=== PATIENT | female | born 1990 | race Caucasian/White ===

== ENCOUNTER 2017-08-18 17:29 | Emergency (ER) | payer MEDICAID ==
[~2017-08-18] VITALS: Ht 165.1 cm; Wt 108.4 kg
[2017-08-18 17:44] VITALS: Ht 165.1 cm; Wt 108.4 kg
[2017-08-18 18:45] LABS: BASOPHIL % 0.4 % (0-2); PLATELET COUNT 358 x10^3mcL (130-400); RED CELL DISTRIBUTION WIDTH 13.4 % (11.5-14.5)
[2017-08-18 18:49] LABS: microscopic required? YES; urine erythrocyte TRACE (NEGATIVE)
[2017-08-18 18:56] LABS: CALCIUM 8.9 mg/dL (8.5-10.1); CARBON DIOXIDE 24.7 mmol/L (21-32); CHLORIDE SERUM 99 mmol/L (98-107); CREATININE SERUM 0.7 mg/dL (0.6-1.0); GFR1 > 60 mL/min; GLUCOSE SERUM 394 mg/dL (74-106); POTASSIUM SERUM 3.7 mmol/L (3.5-5.1); SODIUM SERUM 137 mmol/L (136-145)
[2017-08-18 19:40] LABS: ALBUMIN 3.3 g/dL (3.4-5.0); ALKALINE PHOSPHATASE 86 U/L (46-116); ALT/SGPT 32 U/L (14-59); AMYLASE 29 U/L (25-115); AST/SGOT 23 U/L (15-37); BILIRUBIN TOTAL 0.1 mg/dL (0.20-1.00); LIPASE 133 IU/L (73-393); TOTAL PROTEIN, SERUM 7.2 g/dL (6.4-8.2)
[2017-08-18 20:22] VITALS: BP 130/78
== END 2017-08-18 20:22 | disposition home or self-care (01) ==
LOC: ED 17:29
PROVIDERS: Emergency Medicine
DX: N39.0 Urinary tract infection, site not specified (principal); R11.2 Nausea with vomiting, unspecified; Z88.6 Allergy status to analgesic agent
CPT/HCPCS: J2405; J3010; J3490; J7030; Q0092

== ENCOUNTER 2017-10-28 21:02 | Emergency (ER) | payer SELFPAY ==
[~2017-10-28] VITALS: Ht 165.1 cm; Wt 107.0 kg
[2017-10-28 21:14] VITALS: Ht 165.1 cm; Wt 107.0 kg
[2017-10-28 22:48] LABS: BASOPHIL % 0.4 % (0-2); PLATELET COUNT 341 x10^3mcL (130-400); RED CELL DISTRIBUTION WIDTH 13.6 % (11.5-14.5)
[2017-10-28 22:56] VITALS: BP 126/83
[2017-10-28 22:56] LABS: CALCIUM 9.2 mg/dL (8.5-10.1); CARBON DIOXIDE 23.3 mmol/L (21-32); CHLORIDE SERUM 98 mmol/L (98-107); CREATININE SERUM 0.7 mg/dL (0.6-1.0); GFR1 > 60 mL/min; GLUCOSE SERUM 292 mg/dL (74-106); POTASSIUM SERUM 4.2 mmol/L (3.5-5.1); SODIUM SERUM 135 mmol/L (136-145)
== END 2017-10-28 23:43 | disposition home or self-care (01) ==
LOC: ED 21:02
PROVIDERS: Emergency Medicine
DX: R21 Rash and other nonspecific skin eruption (principal); E11.9 Type 2 diabetes mellitus without complications; Z88.6 Allergy status to analgesic agent; Z88.8 Allergy status to other drugs, medicaments and biological substances
CPT/HCPCS: J1200

== ENCOUNTER 2017-11-20 20:45 | Emergency (ER) | payer SELFPAY ==
[~2017-11-20] VITALS: Ht 165.1 cm; Wt 107.0 kg
[2017-11-20 21:06] VITALS: Ht 165.1 cm; Wt 107.0 kg
[2017-11-21 00:38] VITALS: BP 127/72
[2017-11-21 00:41] LABS: microscopic required? YES; urine erythrocyte 3+ (NEGATIVE)
== END 2017-11-21 00:38 | disposition home or self-care (01) ==
LOC: ED 20:45
PROVIDERS: Emergency Medicine Emergency Medical Services
DX: N92.6 Irregular menstruation, unspecified (principal); E11.9 Type 2 diabetes mellitus without complications; Z88.6 Allergy status to analgesic agent

== ENCOUNTER 2018-05-28 07:14 | Emergency (ER) | payer MEDICAID ==
[~2018-05-28] VITALS: Ht 165.1 cm; Wt 106.6 kg
[2018-05-28 07:18] VITALS: Ht 165.1 cm; Wt 106.6 kg
[2018-05-28 08:44] VITALS: BP 108/67
== END 2018-05-28 08:44 | disposition home or self-care (01) ==
LOC: ED 07:14
DX: M94.0 Chondrocostal junction syndrome [Tietze] (principal); E11.9 Type 2 diabetes mellitus without complications; Z88.6 Allergy status to analgesic agent
CPT/HCPCS: J3010; Q0092; Q0162

== ENCOUNTER 2018-07-27 07:36 | Inpatient (IN) | payer MEDICAID ==
[~2018-07-27] VITALS: Ht 162.6 cm; Wt 106.1 kg
[2018-07-27 07:37] VITALS: Ht 162.6 cm; Wt 106.1 kg
[2018-07-27 09:58] LABS: BASOPHIL % 0.5 % (0-2); PLATELET COUNT 339 x10^3mcL (130-400); RED CELL DISTRIBUTION WIDTH 13.5 % (11.5-14.5)
[2018-07-27 10:06] LABS: CALCIUM 8.9 mg/dL (8.5-10.1); CARBON DIOXIDE 25.2 mmol/L (21-32); CHLORIDE SERUM 99 mmol/L (98-107); CREATININE SERUM 0.5 mg/dL (0.6-1.0); GFR1 > 60 mL/min; GLUCOSE SERUM 220 mg/dL (74-106); POTASSIUM SERUM 3.9 mmol/L (3.5-5.1); SODIUM SERUM 134 mmol/L (136-145)
[2018-07-27 10:11] LABS: ALBUMIN 3.4 g/dL (3.4-5.0); ALKALINE PHOSPHATASE 68 U/L (46-116); ALT/SGPT 23 U/L (14-59); AMYLASE 26 U/L (25-115); AST/SGOT 9 U/L (15-37); BILIRUBIN TOTAL 0.3 mg/dL (0.20-1.00); LIPASE 90 IU/L (73-393); TOTAL PROTEIN, SERUM 7.6 g/dL (6.4-8.2)
[2018-07-27] MEDS ORDERED: GLIPIZIDE (16:20)
[2018-07-27] MEDS ORDERED: METFORMIN HCL1000 MG PO (16:21)
[2018-07-27 19:02] VITALS: BP 113/49
[2018-07-27 21:39] VITALS: BP 101/56
[2018-07-28 05:31] VITALS: BP 109/60
[2018-07-28 07:07] LABS: BASOPHIL % 0.4 % (0-2); PLATELET COUNT 308 x10^3mcL (130-400); RED CELL DISTRIBUTION WIDTH 13.6 % (11.5-14.5)
[2018-07-28 07:10] LABS: CALCIUM 8.4 mg/dL (8.5-10.1); CARBON DIOXIDE 28.3 mmol/L (21-32); CHLORIDE SERUM 102 mmol/L (98-107); CREATININE SERUM 0.6 mg/dL (0.6-1.0); GFR1 > 60 mL/min; GLUCOSE SERUM 244 mg/dL (74-106); POTASSIUM SERUM 4.3 mmol/L (3.5-5.1); SODIUM SERUM 136 mmol/L (136-145)
[2018-07-28 09:40] VITALS: BP 108/58
[2018-07-28 14:26] LABS: UA SPECIFIC GRAVITY 1.015 (1.005-1.035); microscopic required? YES; urine erythrocyte NEGATIVE (NEGATIVE)
[2018-07-28 17:27] VITALS: BP 113/73
[2018-07-28 21:24] VITALS: BP 107/50
[2018-07-29 05:34] VITALS: BP 109/64
[2018-07-29 06:24] LABS: BASOPHIL % 0.3 % (0-2); PLATELET COUNT 321 x10^3mcL (130-400); RED CELL DISTRIBUTION WIDTH 13.3 % (11.5-14.5)
[2018-07-29 06:55] LABS: CALCIUM 8.6 mg/dL (8.5-10.1); CARBON DIOXIDE 25.7 mmol/L (21-32); CHLORIDE SERUM 100 mmol/L (98-107); CREATININE SERUM 0.6 mg/dL (0.6-1.0); GFR1 > 60 mL/min; GLUCOSE SERUM 247 mg/dL (74-106); POTASSIUM SERUM 4.4 mmol/L (3.5-5.1); SODIUM SERUM 134 mmol/L (136-145)
[2018-07-29 09:12] VITALS: BP 124/66
[2018-07-29] MEDS ORDERED: GYNAZOLE VG (13:35)
[2018-07-29] MEDS ORDERED: METAMUCIL FIBE3.4 GM PO (15:07)
[2018-07-29 15:10] VITALS: BP 124/66
== END 2018-07-29 16:58 | disposition home or self-care (01) | DRG 531 ==
LOC: ED 07:36 → MU 16:01
PROVIDERS: Internal Medicine; Specialist; ADMIT Internal Medicine
DX: N76.0 Acute vaginitis (principal); E11.9 Type 2 diabetes mellitus without complications; K59.00 Constipation, unspecified; Z79.84 Long term (current) use of oral hypoglycemic drugs
CPT/HCPCS: 82962; 87491; 87591; J0696; J2270; J2405; J3010; J3490; J7030; Q0092

== ENCOUNTER 2018-08-10 19:55 | Emergency (ER) | payer MEDICAID ==
[~2018-08-10] VITALS: Ht 162.6 cm; Wt 108.4 kg
[~2018-08-10 19:55] MED LIST: GLIPIZIDE; GYNAZOLE VG; METAMUCIL FIBE3.4 GM PO; METFORMIN HCL1000 MG PO
[2018-08-10 20:31] VITALS: Ht 162.6 cm; Wt 108.4 kg
[2018-08-10 21:19] LABS: BASOPHIL % 0.4 % (0-2); PLATELET COUNT 344 x10^3mcL (130-400); RED CELL DISTRIBUTION WIDTH 13.3 % (11.5-14.5)
[2018-08-10 21:38] LABS: CHLORIDE SERUM 100 mmol/L (98-107); CREATININE SERUM 0.7 mg/dL (0.6-1.0); GFR1 > 60 mL/min; GLUCOSE SERUM 246 mg/dL (74-106); POTASSIUM SERUM 4.1 mmol/L (3.5-5.1); SODIUM SERUM 135 mmol/L (136-145)
[2018-08-10 21:43] LABS: ALBUMIN 3.7 g/dL (3.4-5.0); ALKALINE PHOSPHATASE 72 U/L (46-116); ALT/SGPT 24 U/L (14-59); AST/SGOT 11 U/L (15-37); BILIRUBIN TOTAL 0.2 mg/dL (0.20-1.00); TOTAL PROTEIN, SERUM 8.1 g/dL (6.4-8.2)
[2018-08-10 23:13] LABS: UA SPECIFIC GRAVITY >=1.030 (1.005-1.035); microscopic required? YES; urine erythrocyte TRACE (NEGATIVE)
[2018-08-11 01:30] VITALS: BP 134/69
== END 2018-08-11 01:30 | disposition home or self-care (01) ==
LOC: ED 19:55
PROVIDERS: Emergency Medicine
DX: N76.0 Acute vaginitis (principal); B96.89 Other specified bacterial agents as the cause of diseases classified elsewhere; E11.9 Type 2 diabetes mellitus without complications; Z88.6 Allergy status to analgesic agent
CPT/HCPCS: 36415

== ENCOUNTER 2018-08-14 13:32 | Emergency (ER) | payer MEDICAID ==
[~2018-08-14] VITALS: Ht 162.6 cm; Wt 107.5 kg
[2018-08-14 13:37] VITALS: Ht 162.6 cm; Wt 107.5 kg
[2018-08-14 14:41] VITALS: BP 143/71
== END 2018-08-14 14:41 | disposition home or self-care (01) ==
LOC: ED 13:32
DX: N76.0 Acute vaginitis (principal); L29.9 Pruritus, unspecified; E11.9 Type 2 diabetes mellitus without complications; Z88.6 Allergy status to analgesic agent

== ENCOUNTER 2018-11-13 06:02 | Emergency (ER) | payer MEDICAID ==
[~2018-11-13] VITALS: Ht 162.6 cm; Wt 108.1 kg
[2018-11-13 06:07] VITALS: Ht 162.6 cm; Wt 108.1 kg
[2018-11-13 08:00] LABS: BASOPHIL % 0.2 % (0-2); PLATELET COUNT 323 x10^3mcL (130-400); RED CELL DISTRIBUTION WIDTH 13.6 % (11.5-14.5)
[2018-11-13 08:16] LABS: CALCIUM 8.2 mg/dL (8.5-10.1); CARBON DIOXIDE 24.3 mmol/L (21-32); CHLORIDE SERUM 105 mmol/L (98-107); CREATININE SERUM 0.5 mg/dL (0.6-1.0); GFR1 > 60 mL/min; GLUCOSE SERUM 217 mg/dL (74-106); SODIUM SERUM 139 mmol/L (136-145)
[2018-11-13 08:20] LABS: ALKALINE PHOSPHATASE 59 U/L (46-116); ALT/SGPT 24 U/L (14-59); AST/SGOT 12 U/L (15-37); BILIRUBIN TOTAL 0.2 mg/dL (0.20-1.00); TOTAL PROTEIN, SERUM 6.5 g/dL (6.4-8.2)
[2018-11-13 08:21] LABS: ALBUMIN 2.9 g/dL (3.4-5.0)
[2018-11-13 08:29] LABS: AMPHETAMINE QUAL UR NONE DETECTED (See below)
[2018-11-13 08:31] LABS: FREE THYROXINE INDEX 2.4 ug/dL (1.4-4.5); T4(THYROXINE) 6.9 ug/dL (4.7-13.3)
[2018-11-13 08:36] LABS: T3 TOTAL 1.21 ng/mL
[2018-11-13 11:26] VITALS: BP 119/75
== END 2018-11-13 11:26 | disposition home or self-care (01) ==
LOC: ED 06:02
PROVIDERS: Emergency Medicine
DX: R07.89 Other chest pain (principal); R10.13 Epigastric pain; R10.12 Left upper quadrant pain; R10.30 Lower abdominal pain, unspecified; E11.9 Type 2 diabetes mellitus without complications; Z88.6 Allergy status to analgesic agent; H57.89 Other specified disorders of eye and adnexa
CPT/HCPCS: 84439; 85378; J2405; J3490; J7030; Q0092

== ENCOUNTER 2019-01-11 12:31 | Emergency (ER) | payer MEDICAID ==
[~2019-01-11] VITALS: Ht 167.6 cm; Wt 108.4 kg
[2019-01-11 12:56] VITALS: Ht 167.6 cm; Wt 108.4 kg
[2019-01-11 13:30] LABS: BASOPHIL % 0.4 % (0-2); PLATELET COUNT 331 x10^3mcL (130-400)
[2019-01-11 13:38] LABS: CALCIUM 8.9 mg/dL (8.5-10.1); CARBON DIOXIDE 26.6 mmol/L (21-32); CHLORIDE SERUM 100 mmol/L (98-107); CREATININE SERUM 0.7 mg/dL (0.6-1.0); GFR1 > 60 mL/min; GLUCOSE SERUM 377 mg/dL (74-106); SODIUM SERUM 136 mmol/L (136-145)
[2019-01-11 13:43] LABS: ALBUMIN 3.4 g/dL (3.4-5.0); ALKALINE PHOSPHATASE 85 U/L (46-116); ALT/SGPT 30 U/L (14-59); AST/SGOT 13 U/L (15-37); BILIRUBIN TOTAL 0.1 mg/dL (0.20-1.00); LIPASE 127 IU/L (73-393); TOTAL PROTEIN, SERUM 7.6 g/dL (6.4-8.2)
[2019-01-11 13:55] LABS: UA SPECIFIC GRAVITY <=1.005 (1.005-1.035); microscopic required? YES; urine erythrocyte 3+ (NEGATIVE)
[2019-01-11 16:25] VITALS: BP 119/71
== END 2019-01-11 16:25 | disposition home or self-care (01) ==
LOC: ED 12:31
PROVIDERS: Emergency Medicine
DX: N39.0 Urinary tract infection, site not specified (principal); R11.12 Projectile vomiting; R19.7 Diarrhea, unspecified; E11.65 Type 2 diabetes mellitus with hyperglycemia; Z88.6 Allergy status to analgesic agent
CPT/HCPCS: 82962; J0696; J1815; J2405; J3010; J7030; J7060; Q0092

== ENCOUNTER 2019-03-10 15:04 | Emergency (ER) | payer MEDICAID ==
[~2019-03-10] VITALS: Ht 165.1 cm; Wt 106.6 kg
[2019-03-10 15:17] VITALS: Ht 165.1 cm; Wt 106.6 kg
[2019-03-10 16:15] LABS: microscopic required? NO
[2019-03-10 16:21] LABS: urine erythrocyte NEGATIVE (NEGATIVE)
[2019-03-10 16:23] LABS: CALCIUM 8.7 mg/dL (8.5-10.1); CARBON DIOXIDE 22.8 mmol/L (21-32); CHLORIDE SERUM 96 mmol/L (98-107); CREATININE SERUM 0.5 mg/dL (0.6-1.0); GFR1 > 60 mL/min; GLUCOSE SERUM 322 mg/dL (74-106); POTASSIUM SERUM 3.8 mmol/L (3.5-5.1); SODIUM SERUM 132 mmol/L (136-145)
[2019-03-10 16:27] LABS: ALKALINE PHOSPHATASE 83 U/L (46-116); ALT/SGPT 29 U/L (14-59); AST/SGOT 7 U/L (15-37); BASOPHIL % 0.3 % (0-2); BILIRUBIN TOTAL 0.11 mg/dL (0.20-1.00); PLATELET COUNT 377 x10^3mcL (130-400); RED CELL DISTRIBUTION WIDTH 13.1 % (11.5-14.5); TOTAL PROTEIN, SERUM 7.7 g/dL (6.4-8.2)
[2019-03-10 16:29] LABS: ALBUMIN 3.2 g/dL (3.4-5.0)
[2019-03-10 18:50] VITALS: BP 104/55
== END 2019-03-10 18:50 | disposition home or self-care (01) ==
LOC: ED 15:04
PROVIDERS: Emergency Medicine
DX: R10.30 Lower abdominal pain, unspecified (principal); E11.9 Type 2 diabetes mellitus without complications; Z88.6 Allergy status to analgesic agent
CPT/HCPCS: 82962; J0696; J2405; J3010; J7030; J7060

== ENCOUNTER 2019-03-11 16:30 | Inpatient (IN) | payer MEDICAID ==
[~2019-03-11] VITALS: Ht 162.6 cm; Wt 109.0 kg
[2019-03-11 16:46] VITALS: Ht 162.6 cm; Wt 109.0 kg
--- NOTE | 2019-03-11 16:54 | NUR ---
PT PRESENTS TO THE ED TODAY WITH C/C OF ABD PAIN X3 DAYS. PT REPORTS PAIN IS IN BILATERAL LOWER QUADRANTS. PT WAS SEEN HERE YESTERDAY AND DIAGNOSED WITH AN "INFECTION" AND SENT HOME WITH ABX. PT REPORTS +NAUSEA, NO VOMITING. REPORTS PAIN WITH PALPATION TO BILATERAL LOWER QUADRANTS. PT REPORTS THAT WHEN SHE GOT HOME YESTERDAY SHE BEGAN HAVING FEVER AND CHILLS. PT IS AWAKE AND ALERT, RESP E/U, AWAITING MSE. PT AWARE OF NEED FOR URINE SAMPLE, REPORTS THAT SHE WILL PROVIDE WHEN SHE IS ABLE TO.
--- NOTE | 2019-03-11 17:10 | NUR ---
PT HAD TEMP OF 100.8 IN TRIAGE, PT REPORTS THAT SHE FEELS TOO NAUSEOUS TO TAKE TYLENOL AT THIS TIME.
--- NOTE | 2019-03-11 17:12 | NUR ---
DR BARRY MADE AWARE OF PT'S INCREASED TEMP SINCE TRIAGE AND INABILITY TO TAKE TYLENOL. AWAITING NEW ORDERS.
[2019-03-11 17:35] LABS: CALCIUM 8.6 mg/dL (8.5-10.1); CARBON DIOXIDE 21.3 mmol/L (21-32); CHLORIDE SERUM 98 mmol/L (98-107); CREATININE SERUM 0.7 mg/dL (0.6-1.0); GFR1 > 60 mL/min; GLUCOSE SERUM 232 mg/dL (74-106); POTASSIUM SERUM 3.8 mmol/L (3.5-5.1); SODIUM SERUM 133 mmol/L (136-145)
[2019-03-11 17:40] LABS: ALBUMIN 3.1 g/dL (3.4-5.0); ALKALINE PHOSPHATASE 75 U/L (46-116); ALT/SGPT 23 U/L (14-59); AST/SGOT 13 U/L (15-37); BILIRUBIN TOTAL 0.3 mg/dL (0.20-1.00); LIPASE 103 IU/L (73-393); TOTAL PROTEIN, SERUM 7.8 g/dL (6.4-8.2)
--- NOTE | 2019-03-11 17:40 | NUR ---
PT MEDICATED PER ORDER, PT VERBALIZED UNDERSTANDING OF ALL MEDICATIONS PRIOR TO ADMINISTRATION. PT WAS AWARE OF NEED TO CHECK FOR PRIOR TO MED ADMINISTRATION, PT REPORTS THAT SHE IS UNABLE TO PROVIDE SAMPLE. PT REPORTS THAT SHE IS CURRENTLY ON HER PERIOD, AND UNDERSTANDS ALL RISKS IN WHILE RECEIVING MORPHINE.
[2019-03-11 17:54] LABS: BASOPHIL % 0.2 % (0-2); PLATELET COUNT 320 x10^3mcL (130-400); RED CELL DISTRIBUTION WIDTH 13.1 % (11.5-14.5)
--- NOTE | 2019-03-11 17:54 | NUR ---
PT RETURNED FROM CT, NAD NOTED.
--- NOTE | 2019-03-11 18:01 | NUR ---
PT GIVEN ICE CHIPS, OKAY PER DR BARRY.
--- NOTE | 2019-03-11 18:58 | NUR ---
PER DR BARRY, SET UP FOR PELVIC EXAM. PT REPORTS THAT SHE NOW NEEDS TO USE RESTROOM. STUDENT RN ALFIE TO WHEEL PT TO RESTROOM AND ASSIST HER TO RESTROOM.
--- NOTE | 2019-03-11 19:21 | NUR ---
PT RETURNED SAFELY BACK TO [facility]. ULTRASOUND AT BEDSIDE, PER DR BARRY, HOLD OFF ON VAGINAL EXAM AT THIS TIME.
--- NOTE | 2019-03-11 19:50 | NUR ---
PELVIC EXAM SET UP
--- NOTE | 2019-03-11 20:07 | NUR ---
IRMA BARRY FOR PELVIC EXAM AND SPECIMEN COLLECTION. SENT TO LAB FOR TESTING.
[2019-03-11 20:08] LABS: UA SPECIFIC GRAVITY <=1.005 (1.005-1.035); microscopic required? YES; urine erythrocyte 3+ (NEGATIVE)
--- NOTE | 2019-03-11 20:21 | NUR ---
ADMINISTERED 1000MG OF AZITHROMYCIN PER DR BARRY. SEE EMAR FOR DETAILS.
--- NOTE | 2019-03-11 21:00 | NUR ---
ULTRASOUND IN PROGRESS AT BEDSIDE.
--- NOTE | 2019-03-11 21:27 | NUR ---
CALLED TO RESTROOM FOR ASSISTANCE, PT STATES THAT SHE IS EXPERIENCING SHARP BILATERAL LOWER QUADRANT PAIN, NOTED TO BE CRYING AT THIS TIME. PT ASKED FOR A MINUTE, THEN STATES THAT PAIN IS NOW RESOLVED AND WILL WALK BACK TO THE BED WITH THE ASSISTANCE OF HER SIGNIFCANT OTHER.
--- NOTE | 2019-03-11 22:34 | NUR ---
PT REPORT CALLED TO ERIN GARCIA TO ASSUME PT CARE.
--- NOTE | 2019-03-11 22:35 | NUR ---
PT TRANSFERRED TO [facility] BY [facility] BY NATALIO GARCIA AND LIZZ EMT. PT ON FULL CM FOR TRANSPORT. PT AOX4, RESP EVEN AND UNLABORED, NO ACUTE DISTRESS NOTED. PT ACCEPTED BY ERIN GACRIA TO ASSUME PT CARE. PT TRANSFERRED FROM [facility] TO BED WITHOUT INCIDENT.
--- NOTE | 2019-03-11 22:46 | NUR ---
RECEIVED PT FROM ED VIA ANTWAN, CAME IN DUE TO ABDOMINAL PAIN, FEVER, SORE THROAT, VOMITING, AND BODY ACHES. AAOX4. C/O 10/10 HEADACHE AND DIZZINESS. ABLE TO FOLLOW COMMANDS. STATED THAT SHE HAS MILD BLURRY VISION. NO SOB NOTED, O2 SAT=98%, RA. STATED THAT SHE HAS 5/10 ACHING MID CHEST PAIN ON DEEP BREATHING, SR ON THE MONITOR. C/O LOWER ABDOMINAL PAIN ON URINATION. C/O BLOATING, ABDOMEN IS SOFT. C/O NAUSEA AND STATED THAT SHE VOMITED X8 EPISODES INVESTMENT BANKER. STATED THAT SHE IS ON HER 3RD DAY OF MESNTRUAL PERIOD AT THIS TIME. C/O TINGLING SENSATION ON BILATERAL FEET. FLAT AFFECT NOTED. IV SITE PATENT AND INTACT. SIDE RAILS UPX2. CALL LIGHT ON REACH. ENDORSED TO PRIMARY NURSE ERIN AT BEDSIDE FOR CONTINUITY OF CARE
--- NOTE | 2019-03-11 22:50 | NUR ---
RECEIVED REPORT FROM TRACEY GARCIA. ADMINISTERED FLU VACCINE AND PNEUMOVAX VACCINE PER MAR. STARTED IVF PER MAR. SIDE RAILS X2 UP. BED IN LOWEST POSITION. CALL LIGHT WITHIN REACH. WILL CONTINUE TO MONITOR.
[2019-03-11 23:01] VITALS: BP 123/75
--- NOTE | 2019-03-12 01:23 | NUR ---
PT SLEEPING, BUT EASILY AROUSABLE. PT BREATHING EVEN AND UNLABORED ON RA. NO ACUTE DISTRESS NOTED AT THIS TIME. IVF INFUSING WELL. CALL LIGHT WITHIN REACH. BED IN LOWEST POSITION. SIDE RAILS X2 UP. WILL CONTINUE TO MONITOR.
--- NOTE | 2019-03-12 04:15 | NUR ---
PER JUN, ADMINISTERED TYLENOL AND ZOFRAN FOR PAIN AND NAUSEA. PROVIDED PT WITH ICE WATER. BED IN LOWEST POSITION. SIDE RAILS X2 UP. CALL LIGHT WITHIN REACH. WILL CONTINUE TO MONITOR.
--- NOTE | 2019-03-12 04:45 | NUR ---
PT SLEPT ONCE SHE ARRIVED TO THE UNIT. PT COMPLIED WITH NURSING CARE THROUGHOUT THE SHIFT. COMFORT AND SAFETY MEASURES MAINTAINED DURING THE SHIFT. NO ACUTE DISTRESS NOTED DURING THE SHIFT. ALL NEEDS AND CONCERNS ADDRESSED. WILL ENDORSE CARE TO DAY SHIFT NURSE. WILL CONTINUE TO MONITOR.
[2019-03-12 05:38] VITALS: BP 134/76
[2019-03-12 06:04] LABS: AMPHETAMINE QUAL UR NONE DETECTED (See below)
[2019-03-12 06:24] LABS: CALCIUM 8.2 mg/dL (8.5-10.1); CARBON DIOXIDE 23.3 mmol/L (21-32); CHLORIDE SERUM 101 mmol/L (98-107); CREATININE SERUM 0.4 mg/dL (0.6-1.0); GFR1 > 60 mL/min; GLUCOSE SERUM 202 mg/dL (74-106); POTASSIUM SERUM 3.6 mmol/L (3.5-5.1); SODIUM SERUM 135 mmol/L (136-145)
[2019-03-12 06:32] LABS: BASOPHIL % 0.3 % (0-2); PLATELET COUNT 281 x10^3mcL (130-400)
--- NOTE | 2019-03-12 07:30 | NUR ---
RECEIVED PATIENT RESTING IN BED, NO ACUTE DISTRESS NOTED. PATIENT C/O LOOSE STOOLS. PATIENT C/O INTERMITTENT MID-ABD PAIN. DENIES ANY PAIN AT THIS TIME. PATIENT C/O OF MILD HEADACHE, STATES ELIZONDO IS TOLERABLE. NS IV INFUSING TO RAC, CDI& PATENT. CALL LIGHT WITHIN REACH, BED IN LOW POSITION. WILL CONTINUE TO MONITOR FOR CHANGES.
[2019-03-12 08:09] VITALS: BP 116/80
[2019-03-12 12:45] VITALS: BP 119/82
--- NOTE | 2019-03-12 14:31 | NUR ---
PATIENT IS SHOWERING AT THIS TIME. NO ACUTE DISTRESS NOTED. IV TO RAC SALINE LOCK. WILL CONTINUE TO MONITOR FOR CHANGES.
[2019-03-12 16:30] VITALS: BP 125/85
--- NOTE | 2019-03-12 18:00 | NUR ---
PATIENT VOIDED AT THIS TIME, 50ML YELLOW OUTPUT NOTED. BLADDER SCAN COMPLETED AFTER VOIDING, BLADDER SCAN SHOWED >999ML, DR. ROBERT MADE AWARE, WILL CARRY OUT ORDERS ANY NEW ORDERS.
--- NOTE | 2019-03-12 18:40 | NUR ---
REN CATH INSERTED BY JOSE OSHEA. YELLOW URINE NOTED; 800ML.
--- NOTE | 2019-03-12 19:10 | NUR ---
ENDORSED REPORT TO JOSE CHRISTIANSON.
--- NOTE | 2019-03-12 19:35 | NUR ---
Pt. received from day shift, currently resting in bed, no c/o of pain, just slight h/a that is not uncomfortable. Pt. has no c/o of SOB, no c/o of chest pain at this time or s/o distress. pt. states that sister is coming to visit soon and might stay the night. Will endorse to charge nurse at this time and continue to monitor pt.
[2019-03-12 20:48] VITALS: BP 130/77
[2019-03-12 21:54] LABS: microscopic required? YES; urine erythrocyte TRACE (NEGATIVE)
--- NOTE | 2019-03-12 22:00 | NUR ---
Pt. c/o of burning from IV when given the dose of Doxycycline. Pt. was disconnected d/t to severe pain on arm at this time. Flushed IV site, and pt. said it still hurt, put ice pack to help with the pain. Pt. also c/o of h/a 09/28, throbbing, will medicate w/ [place] as ordered. Pt. also c/o of SOB during this time, and put pt. on O2 via NC at 2L for comfort. Pt. request for new IV site, d/t burning sensation from IV medication. Will attempt new IV site insertion at this time.
--- NOTE | 2019-03-12 22:30 | NUR ---
Pt. currently resting in bed, still c/o of pain in arm at this time, but pt. is more relaxed, and has no s/o SOB, but req for O2 to stay on for a little more. Will continue to monitor pt. at this time. Pt. says the [place] is helping controlt he pain and the pain is more tolerable at this time. will continue to monitor pt. and ensure that safety in check with call light placed within reach, pt. educated on when and how to use call light system, bed set at lowest position.
--- NOTE | 2019-03-13 00:50 | NUR ---
Pt. currently resting in bed, asleep, easily arousable with verbal stimuli. Pt. has not c/o pain at IV site at this time, will continue to monitor.
[2019-03-13 04:06] LABS: RAPID PLASMA REAGIN Non Reactive (Non Reactive)
--- NOTE | 2019-03-13 05:05 | NUR ---
Pt. currently resting in bed, c/o of feeling nausea. Checked blood glucose at this time, 164 at this time. Pt. is okay with trying non-medication related activities to help with nausea. will give pt. some crackers at this time.
[2019-03-13 05:16] VITALS: BP 114/72
--- NOTE | 2019-03-13 06:45 | NUR ---
Pt. currently awake in bed, no c/o of pain at this time. Pt. was resting through most of the night past midnight, only c/o of pain once, only c/o of SOB when pain gets really bad, got a new order for O2 PRN via NC. otherwise, VS stable throughout the night, pt. voiding through the newly inserted FC from last day shift. Pt. states it feels like a weird feeling d/t that there's something there. Will continue to monitor pt. until the end of shift and endorse to next shift RN.
--- NOTE | 2019-03-13 07:05 | NUR ---
RECIEVED PT RESTING IN BED WITH NO C/O PAIN OR DISTRESS AT THIS TIME. A/O X4 WITH NO ELIZONDO OR DIZZINESS. TELE# [id number] CONNECTED TO [place], DENIES ANY CP OR PRESSURE. PT FOUND ON 2LPM O2 NC, DENIES SOB. REN CATHETER IN PLACE AND DRAINING YELLOW URINE. NS RUNNING IN RAC, IV INTACT AND PATENT WITH NO REDNESS NOTED. SAFETY PRECAUTIONS IN PLACE, CALL LIGHT WITHIN REACH, WILL MONITOR.
[2019-03-13 07:11] LABS: BASOPHIL % 0.4 % (0-2); PLATELET COUNT 301 x10^3mcL (130-400); RED CELL DISTRIBUTION WIDTH 13.3 % (11.5-14.5)
[2019-03-13 07:41] LABS: CALCIUM 8.3 mg/dL (8.5-10.1); CARBON DIOXIDE 24.3 mmol/L (21-32); CHLORIDE SERUM 102 mmol/L (98-107); CREATININE SERUM 0.5 mg/dL (0.6-1.0); GFR1 > 60 mL/min; GLUCOSE SERUM 173 mg/dL (74-106); MAGNESIUM 1.8 mg/dL (1.8-2.4); PHOSPHOROUS 4.3 mg/dL (2.5-4.9); POTASSIUM SERUM 3.7 mmol/L (3.5-5.1); SODIUM SERUM 135 mmol/L (136-145)
[2019-03-13 09:37] VITALS: BP 114/67
--- NOTE | 2019-03-13 10:06 | NUR ---
NORCO GIVEN FOR C/O 11/28 ELIZONDO, WILL REASSESS.
[2019-03-13 13:36] VITALS: BP 118/69
--- NOTE | 2019-03-13 15:00 | NUR ---
1500:AT BEDSIDE INSERTING NEW IV IN LFA WHEN PT REPORTED SUDDEN WEAKNESS AND FEELS LIKE SHE IS PASSING OUT. CALLED STATION FOR HELP AND VITALS OBTAINED BP 118/63, MAP 81, PULSE OX 98%, HR 103. PT THEN STATED SYMPTOMS WERE SUBSIDING AND THAT SHE FELT BETTER. CONTINUED TO SECURE IV AND CONTINUED WITH CARE AT BEDSIDE. 1512: PT AGAIN REPORTED FEELING FAINT. NOTIFIED NURSES STATION AGAIN AND OBTAINED VITAL BP 76/29, MAP47 TO RIGHT ARM AND 85/45, MAP OF 53 TO LEFT ARM. CHARGE NURSE CALLED DR BAUTISTA AND RECIEVED ORDERS FOR 1 LITER NS BOLUS NOW. MT WAS NOTIFIED AND MADE AWARE THAT PT HR DROPPED TO 58 DURING EPISODE. PT HR HAD BEEN IN 90'S AND LOW 100'S PRIOR TO EPISODE. 1515: BOLUS STARTED, DR BAUTISTA AT BEDSIDE EVALUATING PT. PT REMAINED ON BEDSIDE CHAIR AND VITALS CHECKED AGIAN BP AT 120/84, HR 94, AND MAP OF 95. PT VERBALIZING SYMPTOMS IMPROVING. 1520: PT CONTINUING WITH IV BOLUS AND ASSISTED BACK INTO BED. PT DENIES ANY MORE SYMPTOMS, WILL CONTINUE TO MONITOR. FAMILY AT BEDSIDE AND EDUCATED TO CALL FOR ASSISTANCE IF PT STARTS TO FEEL ANY MORE SYMPTOMS.
[2019-03-13 16:43] VITALS: BP 113/64
--- NOTE | 2019-03-13 16:51 | NUR ---
FIRST BP AFTER NS BOLUS: BP 118/78, HR 87, MAP 91. PT STABLE NO, DENIES ANY DISTRESS OR SOB.
--- NOTE | 2019-03-13 17:20 | NUR ---
2ND BP READING AFTER BOLUS: BP 116/78, HR 89, MAP 90. PT STABLE WITH NO PAIN OR DISTRESS NOTED.
--- NOTE | 2019-03-13 18:18 | NUR ---
PT STABLE AT THIS TIME WITH NO C/O PAIN OR DISTRESS. FAMILY AT BEDSIDE. TELE# [id number] CONNECTED TO PT, DENIES ANY CP OR PRESSURE. PT ON 1.5 LPM O2 VIA NC. NO SOB NOTED. REN CATHETER IN PLACE AND DRAINING YELLOW URINE. DENIES ANY PAIN OR BURNING AT SITE. LFA IV INTACT AND PATENT WITH NO REDNESS OR INFLAMMATION. NS RUNNING AT 100 ML/HR. OLD IV WAS REMOVED DURING SHIFT WITH CATHETER INTACT. VS WNL. SAFETY PRECAUTIONS IN PLACE, CALL LIGHT WITHIN REACH, WILL ENDORSE CARE TO NIGHT NURSE.
--- NOTE | 2019-03-13 19:30 | NUR ---
Pt. received from day shift, currently resting in bed w/ family at bedside. Pt. has no c/o of SOB at this time, but still on 1.5 L via NC at this time. Pt. has no c/o of pain, no c/o of SOB, no c/o of chest pain either. Pt. educated on when and how to use call light system, call light placed within reach, pt. bed set at lowest position, will continue to monitor pt.
[2019-03-13 20:44] VITALS: BP 116/69
--- NOTE | 2019-03-13 21:58 | NUR ---
Pt. c/o burning when giving the Vibramicin, slowed down the rate and will dilute the ingoing dose of medication at this time and continue to monitor pt. Pt. has no c/o of SOB, no c/o chest pain at this time, currently resting aside from the burning sensation in hand. Family at bedside also.
--- NOTE | 2019-03-13 22:25 | NUR ---
Pt. c/o of pain in arm and couldn't sleep with pain, will medicate pt. as ordered with pain medication at this time and continue to monitor.
--- NOTE | 2019-03-14 03:42 | NUR ---
Pt. asleep at this time, but easily arousable using verbal stimuli at this time. Pt. family at bedside at this time, asleep also. pt. has no c/o of pain, no c/o of sob or s/o distress at this time. Will continue to monitor pt.
--- NOTE | 2019-03-14 05:45 | NUR ---
Pt. c/o of 6 or abdominal and back pain right now and says she feels super uncomfortable at this time. Pt. says she also is feeling weird with the feliciano catheter in place, will endorse to next shift. Pt. currently resting in bed, awake, and alert. will continue to monitor pt.
--- NOTE | 2019-03-14 06:04 | NUR ---
Pt. currently resting in bed, awake and alert with family at bedside. Pt. c/o of pain in lower abdomen right above the bladder. Checked feliciano placement and ensured there was no kink and it didn't get caught underneath her left thigh. Pt. winced when moving the feliciano and the catheter feels uncomfortable. Pt. heard a "pop" earlier and when checked, the catheter was patent and no drainage noted. Reinforced teaching on how catheter is placed. Pt. was medicated as ordered with [place] and pt. states this helps ease the pain and discomofort. Will continue to monitor pt. until the end of shift and endorse to next shift RN.
[2019-03-14 06:13] VITALS: BP 106/65
[2019-03-14 06:59] LABS: BASOPHIL % 0.2 % (0-2); PLATELET COUNT 350 x10^3mcL (130-400); RED CELL DISTRIBUTION WIDTH 13.2 % (11.5-14.5)
[2019-03-14 07:01] LABS: CALCIUM 8.4 mg/dL (8.5-10.1); CARBON DIOXIDE 25.9 mmol/L (21-32); CHLORIDE SERUM 103 mmol/L (98-107); CREATININE SERUM 0.5 mg/dL (0.6-1.0); GFR1 > 60 mL/min; GLUCOSE SERUM 183 mg/dL (74-106); MAGNESIUM 1.8 mg/dL (1.8-2.4); PHOSPHOROUS 4.8 mg/dL (2.5-4.9); POTASSIUM SERUM 4.3 mmol/L (3.5-5.1); SODIUM SERUM 138 mmol/L (136-145)
--- NOTE | 2019-03-14 07:20 | NUR ---
RECEIVED PT. IN BED A/A/O X3. NO SOB, NO N/V NOTED. PT. C/O PAIN AND BURNING SENSATION AT VAGINAL AREA. PT. REQUESTED F/C BE REMOVED. PT. STATED THAT THE F/C CAUSES THE DISCOMFORT AT THE VAGINAL AREA. NS RUNNING AT 100 CC/HR VIA IV SITE AT L FA. BED IN LOW POS., CALL LIGHT WITHIN REACH. SIDE RAILS UP X3. MOTHER AT BEDSIDE.
--- NOTE | 2019-03-14 09:40 | NUR ---
PT. BEING SEEN BY DR. REED WHO WAS MADE AWARE ABOUT PT.'S REQUEST OF F/C REMOVAL DUE TO DISCOMFORT AND BURNING SENSATION AT THE VAGINAL AREA. ORDER TO D/C F/C RECEIVED.
[2019-03-14 09:44] VITALS: BP 117/70
--- NOTE | 2019-03-14 09:45 | NUR ---
F/C DISCONTINUED. PT. STATED SHE FEELS MUCH BETTTER AFTER THE F/C WAS REMOVED.
--- NOTE | 2019-03-14 11:50 | NUR ---
TEMP.= 100.6. TYLENOL 650MG PO GIVEN. COOLING MEASURES APPLIED.
--- NOTE | 2019-03-14 12:15 | NUR ---
C/O FEELING NAUSEATED. ZOFRAN 4MG IV GIVEN.
--- NOTE | 2019-03-14 13:30 | NUR ---
PT. STATED THAT SHE COULD ONLY VOID WITH A SMALL AMT. OF URINE (ABOUT 50 TO 100 CC) WITH EACH VOIDING POST F/C REMOVAL. EXPLAINED TO PT. THAT A F/C WILL NEED TO BE REINSERTED IF PT. IS UNABLE TO VOID FREELY.
[2019-03-14 13:49] VITALS: BP 129/77
--- NOTE | 2019-03-14 14:29 | NUR ---
INFORMED DR SCHERER ABOUT PATIENT'S C/O BURNING, FREQUENCIES AND PAIN WITH URINATION, AND HR- 150. PER DR SCHERER TO ADMINISTER TORADOL AND MORPHINE X1 AND RE-INSERT REN CATHETER. ATTENDING NURSE JAMIL MADE AWARE.
--- NOTE | 2019-03-14 14:32 | NUR ---
NOTED PT.'S H.R. RANGES FROM 140 TO 155 BPM ON HEART MONITOR. PT. IS ALSO COMPLAINING OF LOWER ABD. PAIN (12/29). DR. SCHERER WAS NOTIFIED OF PT.'S H.R. (H.R. IN THE 150's). DR. SCHERER SAID TO GIVE MORPHINE 2MG IVP NOW.
[2019-03-14 16:28] VITALS: BP 147/86
--- NOTE | 2019-03-14 16:30 | NUR ---
PT. STATED "I FEEL LIKE MORE URINE IS COMING OUT NOW. MY URINE KEEPS COMING OUT EVERY FEW MINUTES." NOTICED PT. IS INCONTINENT OF URINE SINCE PAD/ALOK IN BED WAS SOAKED WITH A LARGE AMT. OF URINE. PT. EXPLAINED THAT SHE DOES NOT WANT THE F/C TO BE REINSERTED BECAUSE HER URINE HAS COME OUT FREELY AT THIS TIME. ALSO NOTICED PT.'S H.R. RANGES FROM 110 TO 116 BPM ON HEART MONITOR AT THIS TIME.
--- NOTE | 2019-03-14 18:37 | NUR ---
REMAINS IN STABLE CONDITION AT THIS TIME. WILL CONTINUE TO MONITOR.
--- NOTE | 2019-03-14 19:10 | NUR ---
REPORT RECEIVED FROM DAY SHIFT RN. PATIENT WAS SEEN RESTING COMFORTABLY IN BED WITH FAMILY AT BEDSIDE. NO DISTRESS NOTED. BREATHING EVEN AND UNLABORED ON 1.5L NC. NO SOB OR RESP DISTRESS NOTED. DENIES CHEST PAIN/PRESSURE. NO C/O PAIN. IV TO THE LFA, 22G, INFUSING WELL. PATENT AND INTACT. NO REDNESS OR SWELLING NOTED. COMFORT AND SAFETY MEASURES IN PLACE. BED IS LOCKED AND IN THE LOWEST POSITION. SIDE RIALS UP X2. CALL LIGHT IS WITHIN REACH. WILL CONTINUE TO MONITOR.
[2019-03-14 20:35] VITALS: BP 126/70
--- NOTE | 2019-03-14 22:10 | NUR ---
TELE MONITOR CALLED REPORTING HR SUSTAINING B/W 130-140s. WAS JUST IN PATIENT'S ROOM GIVING MEDS. WENT TO CHECK ON PATIENT. PATIENT REPORTS "I JUST FEEL A LOT OF PRESSURE BECASUE I'M TRYING TO PEE RIGHT NOW". DENIES CHEST PAIN/PRESSURE. DENIES PAIN. WILL CONTINUE TO MONITOR. HR NOW 120s.
--- NOTE | 2019-03-14 23:50 | NUR ---
PATIENT REPORTED THAT SHE PEED A LOT AND WET THE BED. PATIENT CLEANED WITH MARÍA, SANITATION TANK WASHER, AND PROVIDED PATIENT WITH A NEW GOWN. PATIENT REQUESTED TO SIT IN BEDSIDE CHAIR. ASSISTED PATIENT TO BEDSIDE CHAIR. APPLIED NEW LINENS TO BED. PATIENT REMAINS IN BED SIDE CHAIR. TOLD HER TO CALL WHEN SHE'S READY TO GO BACK TO BED. PATIENT REPORTS DOXYCYCLINE IVPB [place]O VIENS (IV LOWER LFA), RADIATED TO SHOULDERS, MAKES HER SOB, W/ RIGHT ABD PAIN. DENIES RINGING IN EAR. STATES SHE CAN "FEEL IT IN HER BONES". WHEN BURNING IS OCCURING, IV SITE IS RED. NOTIFIED DR BECKWITH. CALL LIGHT IS WITHIN REACH. MOTHER AT BEDSIDE. WILL CONTINUE TO MONITOR.
--- NOTE | 2019-03-15 00:40 | NUR ---
PATIENT BACK IN BED. REQUESTING BSC. BSC PROVIED. DARK RED BLOOD NOTED ON ALOK WHEN PATIENT WAS SITTING ON THE CHAIR. PATIENT DENIES BEING ON HER PERIOD AND SAID HER LAST DAY WAS ON FRIDAY. BLOOD ALSO NOTED TO WIPES WHEN CLEANING [place]-ARE[place]. NO BLOOD NOTED TO RECTAL AREA. NOTIFIED DR BECKWITH.
--- NOTE | 2019-03-15 03:16 | NUR ---
RESTING IN BED WITH EYES CLOSED. MOTHER AT BEDSIDE. NO DISTRESS NOTED. BREATHING EVEN AND UNLABORED ON 2L NC. NO SOB NOTED. IVF INFUSING WELL. NO S/S OF PAIN NOTED. SAFETY MEASURES IN PLACE. CALL LIGHT IS WITHIN REACH. WILL CONTINUE TO MONITOR.
[2019-03-15 05:17] VITALS: BP 110/62
--- NOTE | 2019-03-15 05:41 | NUR ---
CHECKED ON PATIENT. LAYINGIN BED. REPORTS THAT WHEN SHE VOIDS, THERE ISN'T BLOOD ANYMORE AND ALSO DENIES DSYURIA AT THIS TIME. REPORTS THROBBING HEADAHCE. WILL MEDICATED.
--- NOTE | 2019-03-15 05:56 | NUR ---
C/O 8/10 THROBBING HEADACHE. REQUESTING PRN TYLENOL. GIVEN ORDERED. MED EDUCATION GIVEN. NO DISTRESS NOTED. WILL CONTINUE TO MONITOR.
--- NOTE | 2019-03-15 06:26 | NUR ---
RESTED IN LONG INTERVALS THROUGHOUT THE NIGHT. NO ACUTE CHANGES NOTED. BREATHING EVEN AND UNLABORED ON 2L NC. NO SOB OR RESP DISTRESS NOTED. NO DISTRESS NOTED. DENIES CHEST PAIN/PRESSURE. LIGHT PINK BLOOD NOTED ON CHUCKS. DENIES DSYURIA. C/O HEADACHE X1. IV TO THE LFA, 22G, INFUSING WELL. PATENT AND INTACT. NO REDNESS OR SWELLING NOTED. MULTIPLE VOIDS THROUGHOUT THE NIGHT. ALL NEEDS AND CONCERNS ADDRESSED. SAFETY MEASURES IN PLACE. CALL LIGHT IS WITHIN REACH. WILL ENDORSE CARE TO DAY SHIFT RN.
--- NOTE | 2019-03-15 07:50 | NUR ---
RECEIVED PT IN BED. ASSESSED AND DOCUMENTED. DENIES ANY PAIN THIS TIME. STABLE. INFORMED NITHIN DAVIS ABOUT PT STATED BLOOD STAIN WHEN WIPE THE PERINEAL AREA, NO VAGINAL BLEEDING, SUSAN SAID IT POSSIBLY FROM PT HAD REN CATH BEFORE. SAFTEY PRECAUTIONS ARE IN PLACE. WILL MONITOR. V/S STABLE. SPO2 97% IN RA.
--- NOTE | 2019-03-15 09:30 | NUR ---
INFORMED SUSAN ABOUT PT C/O DIZZINESS AND BURNING IV SITE WITH ANTIBIOTIC VIBRAMYCIN, THIS TIME SHE INFORMED BEFORE [facility], SUSAN SAID NO NEED TO GIVE VIBRAMYCIN AND SHE IS GOING TO DC PT TODAY.
[2019-03-15 09:54] VITALS: BP 147/87
[2019-03-15] MEDS ORDERED: FLA500 PO (10:45)
[2019-03-15] MEDS ORDERED: FLUCONAZOLE100 MG PO (10:45)
[2019-03-15] MEDS ORDERED: DOXYCYCLINE100 M4 PO (10:45)
[2019-03-15 10:58] VITALS: BP 147/87
--- NOTE | 2019-03-15 13:00 | NUR ---
PT HAD LUNCH, ATE GOOD. STABLE. INFORMED SHE DISCHARGED, SHE CALLED FOR RIDE.
[2019-03-15 13:08] VITALS: BP 116/65
--- NOTE | 2019-03-15 14:10 | NUR ---
PT'S FAMILY ARRIVED, DC INSTRUCTIONS GIVEN. PB SIGNED AND SENT WITH PT. IV REMOVED DRESSING APPLIED. TELE REMOVED. PT IS STABLE. DENIES ANY PAIN. CHRONOMETER TESTER WHEELED PT TO LOBBY ACCOMPANIED WITH FAMILY. DC HOME.
== END 2019-03-15 14:19 | disposition home or self-care (01) | DRG 720 ==
LOC: ED 16:30 → DU 21:45
PROVIDERS: Emergency Medicine; ADMIT General Practice
DX: A41.9 Sepsis, unspecified organism (principal); E11.65 Type 2 diabetes mellitus with hyperglycemia; E87.1 Hypo-osmolality and hyponatremia; E66.01 Morbid (severe) obesity due to excess calories; B37.3 Candidiasis of vulva and vagina; N36.8 Other specified disorders of urethra; N74 Female pelvic inflammatory disorders in diseases classified elsewhere; N73.9 Female pelvic inflammatory disease, unspecified; Z68.39 Body mass index [BMI] 39.0-39.9, adult; Z71.3 Dietary counseling and surveillance
CPT/HCPCS: 82962; 87491; 87591; 87804; 90658; 90732; G0378; J0696; J1815; J2270; J2405; J3490; J7030; J7040; J7060; Q0092; Q9967

== ENCOUNTER 2019-10-11 13:14 | Emergency (ER) | payer MEDICAID ==
[~2019-10-11] VITALS: Ht 172.7 cm; Wt 105.7 kg
[~2019-10-11 13:14] MED LIST changes: +DOXYCYCLINE100 M4 PO; +FLA500 PO; +FLUCONAZOLE100 MG PO
[2019-10-11 13:22] VITALS: Ht 172.7 cm; Wt 105.7 kg
[2019-10-11 15:48] LABS: UA SPECIFIC GRAVITY 1.015 (1.005-1.035); microscopic required? YES; urine erythrocyte 3+ (NEGATIVE)
[2019-10-11 16:03] LABS: CALCIUM 9.1 mg/dL (8.5-10.1); CARBON DIOXIDE 25.7 mmol/L (21-32); CHLORIDE SERUM 99 mmol/L (98-107); CREATININE SERUM 0.8 mg/dL (0.6-1.0); GFR1 > 60 mL/min; GLUCOSE SERUM 342 mg/dL (74-106); POTASSIUM SERUM 3.9 mmol/L (3.5-5.1); SODIUM SERUM 133 mmol/L (136-145)
[2019-10-11 20:08] VITALS: BP 127/81
== END 2019-10-11 20:08 | disposition home or self-care (01) ==
LOC: ED 13:14
PROVIDERS: Emergency Medicine
DX: M47.816 Spondylosis without myelopathy or radiculopathy, lumbar region (principal); E11.9 Type 2 diabetes mellitus without complications; Z88.6 Allergy status to analgesic agent
CPT/HCPCS: 82962; J2270; J2405; J7030

== ENCOUNTER 2019-11-11 10:04 | Emergency (ER) | payer MEDICAID, SELFPAY ==
[~2019-11-11] VITALS: Ht 162.6 cm; Wt 106.6 kg
[2019-11-11 10:47] VITALS: BP 146/103; Ht 162.6 cm; Wt 106.6 kg
== END 2019-11-11 10:56 | disposition home or self-care (01) ==
LOC: ED 10:04
DX: U07.1 COVID-19 (principal); E11.9 Type 2 diabetes mellitus without complications; Z88.6 Allergy status to analgesic agent
CPT/HCPCS: U0003-CS

== ENCOUNTER 2020-03-06 07:03 | Emergency (ER) | payer MEDICAID ==
[~2020-03-06] VITALS: Ht 162.6 cm; Wt 105.2 kg
[2020-03-06 07:24] VITALS: Ht 162.6 cm; Wt 105.2 kg
[2020-03-06 08:42] LABS: microscopic required? YES; urine erythrocyte TRACE (NEGATIVE)
[2020-03-06 09:15] VITALS: BP 115/66
== END 2020-03-06 10:00 | disposition home or self-care (01) ==
LOC: ED 07:03
PROVIDERS: Emergency Medicine
DX: N39.0 Urinary tract infection, site not specified (principal); N83.202 Unspecified ovarian cyst, left side; E11.9 Type 2 diabetes mellitus without complications; Z88.6 Allergy status to analgesic agent

== ENCOUNTER 2020-05-25 07:07 | Emergency (ER) | payer MEDICAID ==
[~2020-05-25] VITALS: Ht 165.1 cm; Wt 104.8 kg
[2020-05-25 07:16] VITALS: Ht 165.1 cm; Wt 104.8 kg
[2020-05-25 08:43] VITALS: BP 126/80
== END 2020-05-25 08:43 | disposition home or self-care (01) ==
LOC: ED 07:07
DX: S00.03XA Contusion of scalp, initial encounter (principal); E11.9 Type 2 diabetes mellitus without complications; R11.0 Nausea; Z88.6 Allergy status to analgesic agent; W18.09XA Striking against other object with subsequent fall, initial encounter; Y93.89 Activity, other specified; Y92.89 Other specified places as the place of occurrence of the external cause; Y99.8 Other external cause status